=== PATIENT | female | born 1965 | race Caucasian/White ===

== ENCOUNTER 2018-02-09 10:13 | Emergency (ER) | payer MEDICAID ==
[~2018-02-09] VITALS: Ht 160 cm; Wt 66.2 kg
[2018-02-09 10:19] VITALS: Ht 160 cm; Wt 66.2 kg
[2018-02-09 13:28] VITALS: BP 97/60
== END 2018-02-09 13:28 | disposition home or self-care (01) ==
LOC: ED 10:13
DX: R51 Headache (principal); R11.0 Nausea; I10 Essential (primary) hypertension; E11.9 Type 2 diabetes mellitus without complications; R42 Dizziness and giddiness; R11.2 Nausea with vomiting, unspecified; Z88.1 Allergy status to other antibiotic agents; Z79.4 Long term (current) use of insulin
CPT/HCPCS: J0780; J1200; J3490; J7030

== ENCOUNTER 2018-05-15 19:38 | Inpatient (IN) | payer MEDICAID ==
[~2018-05-15] VITALS: Ht 160 cm; Wt 66.2 kg
[2018-05-15 20:32] LABS: BASOPHIL % 0.4 % (0-2); PLATELET COUNT 238 x10^3mcL (130-400)
[2018-05-15 20:37] LABS: CALCIUM 10.7 mg/dL (8.5-10.1); CARBON DIOXIDE 32.4 mmol/L (21-32); CREATININE SERUM 1.6 mg/dL (0.6-1.0)
[2018-05-15 20:42] LABS: ALBUMIN 3.8 g/dL (3.4-5.0); BILIRUBIN TOTAL 0.33 mg/dL (0.20-1.00)
[2018-05-15 22:05] LABS: microscopic required? YES; urine erythrocyte NEGATIVE (NEGATIVE)
[2018-05-16] VITALS (7 sets, daily range): BP systolic 134–174; BP diastolic 77–84
[2018-05-16 01:34] LABS: MAGNESIUM 2.5 mg/dL (1.8-2.4); PHOSPHOROUS 3.8 mg/dL (2.5-4.9)
[2018-05-16 01:36] LABS: CHOLESTEROL/HDL RATIO 2.9
[2018-05-16 01:42] LABS: T3 TOTAL 0.98 ng/mL
[2018-05-16 01:45] LABS: FREE T4 1.19 ng/dL (0.76-1.46); FREE THYROXINE INDEX 3.1 ug/dL (1.4-4.5); T4(THYROXINE) 8.7 ug/dL (4.7-13.3)
[2018-05-16] MEDS ORDERED: FAMOTIDINE20 M1 PO (03:52)
[2018-05-16] MEDS ORDERED: ZOF4 PO (03:55)
[2018-05-16] MEDS ORDERED: NORCO1 TA2 PO (03:56)
[2018-05-16] MEDS ORDERED: D-20001 TAB PO (03:57)
[2018-05-16] MEDS ORDERED: HUMALOG100 U/ML SC (04:46)
[2018-05-16] MEDS ORDERED: BASAGLAR K100 UNIT/1 SQ (04:58)
[2018-05-16 06:31] LABS: BASOPHIL % 0.5 % (0-2); PLATELET COUNT 212 x10^3mcL (130-400); RED CELL DISTRIBUTION WIDTH 13.9 % (11.5-14.5)
[2018-05-16 06:37] LABS: CALCIUM 10.3 mg/dL (8.5-10.1); CARBON DIOXIDE 27.5 mmol/L (21-32); CREATININE SERUM 1.4 mg/dL (0.6-1.0); POTASSIUM SERUM 4.7 mmol/L (3.5-5.1)
[2018-05-16 12:28] LABS: RED BLOOD CELLS 3.74 M/mm3 (4.10-5.10)
[2018-05-16 13:24] LABS: IRON 77 ug/dL (50-170); TOTAL IRON BINDING CAPACITY 273 ug/dL (250-450)
[2018-05-17 06:55] LABS: BASOPHIL % 0.4 % (0-2); PLATELET COUNT 190 x10^3mcL (130-400); RED CELL DISTRIBUTION WIDTH 14.4 % (11.5-14.5)
[2018-05-17 07:03] VITALS: BP 134/76
[2018-05-17 08:57] VITALS: BP 144/71
[2018-05-17 11:00] LABS: CALCIUM 9.8 mg/dL (8.5-10.1); CARBON DIOXIDE 26.4 mmol/L (21-32); CREATININE SERUM 1.2 mg/dL (0.6-1.0); MAGNESIUM 2.3 mg/dL (1.8-2.4); PHOSPHOROUS 2.8 mg/dL (2.5-4.9); POTASSIUM SERUM 3.9 mmol/L (3.5-5.1)
[2018-05-17 16:40] VITALS: BP 136/69
[2018-05-17 18:30] LABS: BILIRUBIN DIRECT 0.07 mg/dL (0.0-0.2); BILIRUBIN TOTAL 0.2 mg/dL (0.20-1.00); TOTAL PROTEIN, SERUM 6.5 g/dL (6.4-8.2)
[2018-05-17 20:42] VITALS: BP 163/77
[2018-05-18 04:41] VITALS: Ht 160 cm; Wt 66.2 kg
[2018-05-18 05:28] VITALS: BP 158/83
[2018-05-18 05:41] VITALS: BP 151/80
[2018-05-18 05:56] LABS: CALCIUM 10.2 mg/dL (8.5-10.1); CARBON DIOXIDE 27.2 mmol/L (21-32); CREATININE SERUM 1.1 mg/dL (0.6-1.0); MAGNESIUM 1.7 mg/dL (1.8-2.4); PHOSPHOROUS 2.7 mg/dL (2.5-4.9); POTASSIUM SERUM 3.9 mmol/L (3.5-5.1)
[2018-05-18 06:00] LABS: BASOPHIL % 0.7 % (0-2); PLATELET COUNT 186 x10^3mcL (130-400); RED CELL DISTRIBUTION WIDTH 14.3 % (11.5-14.5)
[2018-05-18 08:50] VITALS: BP 159/78
[2018-05-18 14:25] LABS: CALCIUM 9.7 mg/dL (8.5-10.1); CARBON DIOXIDE 24.4 mmol/L (21-32); CREATININE SERUM 1.2 mg/dL (0.6-1.0); POTASSIUM SERUM 4.4 mmol/L (3.5-5.1)
[2018-05-18 16:41] VITALS: BP 159/72
[2018-05-18] MEDS ORDERED: BG FS (19:39)
[2018-05-18] MEDS ORDERED: LAC PO (19:40)
[2018-05-18] MEDS ORDERED: ZES10 PO (20:11)
[2018-05-18 20:16] VITALS: BP 159/72
== END 2018-05-18 21:00 | disposition home or self-care (01) ==
LOC: ED 19:38 → MU 05-16 00:30
PROVIDERS: Emergency Medicine; Family Medicine; Internal Medicine Gastroenterology
PROC: 0DB78ZX Excision of Stomach, Pylorus, Via Natural or Artificial Opening Endoscopic, Diagnostic (ICD-10-PCS; principal; 2018-05-18 09:00)
PROC: 0DJD8ZZ Inspection of Lower Intestinal Tract, Via Natural or Artificial Opening Endoscopic (ICD-10-PCS; 2018-05-18 09:00)
DX: K80.51 Calculus of bile duct without cholangitis or cholecystitis with obstruction (principal); N17.0 Acute kidney failure with tubular necrosis; E11.65 Type 2 diabetes mellitus with hyperglycemia; E83.41 Hypermagnesemia; D68.59 Other primary thrombophilia; E83.52 Hypercalcemia; E87.1 Hypo-osmolality and hyponatremia; K52.9 Noninfective gastroenteritis and colitis, unspecified; E86.0 Dehydration; N39.0 Urinary tract infection, site not specified; J45.909 Unspecified asthma, uncomplicated; E78.5 Hyperlipidemia, unspecified; D64.9 Anemia, unspecified; R80.9 Proteinuria, unspecified; I16.0 Hypertensive urgency; K29.70 Gastritis, unspecified, without bleeding; K59.03 Drug induced constipation; T40.605A Adverse effect of unspecified narcotics, initial encounter; Y92.018 Other place in single-family (private) house as the place of occurrence of the external cause
CPT/HCPCS: 43235; 45378; 74181; 83880; 84439; C9113; J0696; J1200; J1610; J1815; J1885; J2060; J2250; J2270; J2310; J2405; J2765; J3010; J3490; J7030; J7040; Q0092

== ENCOUNTER 2019-11-09 15:38 | Emergency (ER) | payer MEDICAID ==
[~2019-11-09] VITALS: Ht 160 cm; Wt 72.6 kg
[~2019-11-09 15:38] MED LIST: BASAGLAR K100 UNIT/1 SQ; BG FS; D-20001 TAB PO; FAMOTIDINE20 M1 PO; HUMALOG100 U/ML SC; LAC PO; NORCO1 TA2 PO; ZES10 PO; ZOF4 PO
[2019-11-09 15:54] VITALS: Ht 160 cm; Wt 72.6 kg
[2019-11-09 16:53] LABS: microscopic required? YES; urine erythrocyte TRACE (NEGATIVE)
[2019-11-09 16:56] LABS: BASOPHIL % 0.9 % (0-2); PLATELET COUNT 200 x10^3mcL (130-400); RED CELL DISTRIBUTION WIDTH 13.4 % (11.5-14.5)
[2019-11-09 17:19] LABS: ALBUMIN 3.3 g/dL (3.4-5.0); ALKALINE PHOSPHATASE 159 U/L (46-116); ALT/SGPT 28 U/L (14-59); AST/SGOT 14 U/L (15-37); BILIRUBIN TOTAL 0.25 mg/dL (0.20-1.00); CALCIUM 9.5 mg/dL (8.5-10.1); CARBON DIOXIDE 26.6 mmol/L (21-32); CHLORIDE SERUM 99 mmol/L (98-107); CREATININE SERUM 1.9 mg/dL (0.6-1.0); GFR1 29 mL/min; GLUCOSE SERUM 335 mg/dL (74-106); SODIUM SERUM 134 mmol/L (136-145); TOTAL PROTEIN, SERUM 7.2 g/dL (6.4-8.2)
[2019-11-09 20:10] VITALS: BP 125/71
== END 2019-11-09 20:34 | disposition home or self-care (01) ==
LOC: ED 15:38
PROVIDERS: Emergency Medicine
DX: E11.65 Type 2 diabetes mellitus with hyperglycemia (principal); E11.22 Type 2 diabetes mellitus with diabetic chronic kidney disease; I12.9 Hypertensive chronic kidney disease with stage 1 through stage 4 chronic kidney disease, or unspecified chronic kidney disease; N18.9 Chronic kidney disease, unspecified; E78.00 Pure hypercholesterolemia, unspecified; R51 Headache; R53.1 Weakness; Z88.1 Allergy status to other antibiotic agents; Z98.890 Other specified postprocedural states
CPT/HCPCS: 82962; 87804; J1885; J2405